=== PATIENT | female | born 1960 | race African-American/Black ===

== ENCOUNTER 2017-03-20 02:13 | Emergency (ER) | payer OTHER ==
[~2017-03-20] VITALS: Ht 165.1 cm; Wt 63.6 kg
[~2017-03-20 02:13] MED LIST: ADULT ASPIRIN E81 MG PO; AMOXICILLIN875 MG OR; ATROVENT NAS0.03 %; BIOTIN300 MCG PO; BLACK COHOS1 PO; CIPROFLOXACN500 MG PO; DOXEPIN HCL10 MG PO; DYMISTA1 SPR; FISH OIL1 CAP PO; FISH OIL1200 M1 PO; FLEXERIL5 M1 PO; FLUZONE SPLT1 M1 IM; KEFLEX500 MG PO; LASIX 20 MG TAB20 MG PO; LEXAPRO20 MG PO; LIPITOR10 M1 PO; LIPITOR40 M1 PO; LORTAB 7.5-3251 TAB PO; MULTIVITAMIN PO; NAPROSYN500 MG OR; NAPROSYN500 MG PO; NO; NO HOME MEDS; PEPCID20 MG PO; SILVADENE1 % TOP; SIMVASTATIN40 MG PO; TENIVAC1 ML IM; XANAX0.5 MG PO
[2017-03-20] MEDS ORDERED: AMLODIPINE5 MG PO (02:21)
[2017-03-20] MEDS ORDERED: METOPROL TAR25 MG PO (02:22)
[2017-03-20] MEDS ORDERED: NAPROSYN500 MG PO (03:43)
[2017-03-20 04:00] VITALS: BP 146/78
== END 2017-03-20 04:00 | disposition home or self-care (01) | DRG 563 ==
LOC: ED 02:13
DX: S96.912A Strain of unspecified muscle and tendon at ankle and foot level, left foot, initial encounter (principal); I10 Essential (primary) hypertension; I34.1 Nonrheumatic mitral (valve) prolapse; X58.XXXA Exposure to other specified factors, initial encounter

== ENCOUNTER 2019-01-15 06:36 | Day surgery (SDC) | payer BC ==
[~2019-01-15 06:36] MED LIST changes: +AMLODIPINE5 MG PO; +LATANOPROST0.005 % OP; +METOPROL TAR25 MG PO; +OMEPRAZOLE20 M2 PO; +SLOW-MAG PO; +SPIRONOLACTONE50 MG PO; +XALATAN0.005 % OU
[2019-01-15 09:28] VITALS: BP 133/70
== END 2019-01-15 09:25 | disposition home or self-care (01) | DRG 951 ==
LOC: ENDO 06:36 → ORM 08:00 → ENDO 09:25
PROVIDERS: ATTEND Surgery
PROC: 0DJD8ZZ Inspection of Lower Intestinal Tract, Via Natural or Artificial Opening Endoscopic (ICD-10-PCS; principal; 2019-01-15)
PROC: 0DJ08ZZ Inspection of Upper Intestinal Tract, Via Natural or Artificial Opening Endoscopic (ICD-10-PCS; 2019-01-15)
DX: Z12.11 Encounter for screening for malignant neoplasm of colon (principal); K64.4 Residual hemorrhoidal skin tags; K21.9 Gastro-esophageal reflux disease without esophagitis; K29.80 Duodenitis without bleeding; I10 Essential (primary) hypertension; T47.1X6A Underdosing of other antacids and anti-gastric-secretion drugs, initial encounter; Z91.128 Patient's intentional underdosing of medication regimen for other reason; Z79.899 Other long term (current) drug therapy

== ENCOUNTER 2021-10-09 20:40 | Emergency (ER) | payer BC ==
[~2021-10-09] VITALS: Ht 165.1 cm; Wt 63.0 kg
[2021-10-09 20:58] VITALS: BP 147/80
[2021-10-09 21:00] VITALS: BP 146/78
[2021-10-09 21:24] LABS: HEMATOCRIT 42.2 % (37.0-47.0); HEMOGLOBIN 14.2 g/dl (12.0-16.0); IMMATURE GRANULOCYTES 0.2 % (0.0-5.0); MEAN CELL VOLUME 90.4 fL CALC (80.0-100.0); MEAN CORPUSCULAR HGB 30.4 pG CALC (26.0-32.0); MEAN CORPUSCULAR HGB CONC 33.6 g/dL CAL (32.0-36.0); NEUT# 13.73 thou/uL (2.00-7.15); RED BLOOD COUNT 4.67 mill/uL (4.20-5.60); RED CELL DISTRI WIDTH 12.6 % (11.5-15.5)
[2021-10-09] MEDS ORDERED: AMOXICILLIN500 MG PO (21:57)
[2021-10-09 21:59] VITALS: BP 147/80
== END 2021-10-09 22:10 | disposition home or self-care (01) | DRG 153 ==
LOC: ED 20:40
PROVIDERS: Family Medicine
DX: J02.0 Streptococcal pharyngitis (principal); I10 Essential (primary) hypertension; K21.9 Gastro-esophageal reflux disease without esophagitis; I34.1 Nonrheumatic mitral (valve) prolapse; Z20.822 Contact with and (suspected) exposure to COVID-19

== ENCOUNTER 2022-03-25 21:16 | Emergency (ER) | payer BC ==
[~2022-03-25] VITALS: Ht 165.1 cm; Wt 63.6 kg
[~2022-03-25 21:16] MED LIST changes: +AMOXICILLIN500 MG PO
[2022-03-25 21:24] VITALS: BP 145/88
[2022-03-25 21:51] LABS: HEMATOCRIT 43.2 % (37.0-47.0); IMMATURE GRANULOCYTES 0.3 % (0.0-5.0); MEAN CELL VOLUME 87.3 fL CALC (80.0-100.0); MEAN CORPUSCULAR HGB 30.3 pG CALC (26.0-32.0); MEAN CORPUSCULAR HGB CONC 34.7 g/dL CAL (32.0-36.0); NEUT# 4.04 thou/uL (2.00-7.15); RED BLOOD COUNT 4.95 mill/uL (4.20-5.60)
[2022-03-25 22:00] VITALS: BP 136/78
[2022-03-25 22:02] LABS: ALBUMIN 4.6 g/dL (3.2-5.0); ALKALINE PHOSPHATASE 69 u/l (38-126); AMYLASE 89 u/l (30-110); ANION GAP 16 (6-22 (CALC)); BILIRUBIN, TOTAL 0.5 mg/dL (0.0-1.4); BUN 16 mg/dL (8-23); BUN/CREATININE RATIO 20 (12-20 (CALC)); CARBON DIOXIDE 25 mmol/l (22-30); CHLORIDE 101 mmol/l (95-108); CREATININE 0.8 mg/dL (0.5-1.0); GFR FOR AFR.AMER. > 60 ML/MIN (>=60 (CALC)); GFR OTHER RACES > 60 ML/MIN (>=60 (CALC)); LIPASE 122 u/l (23-300); POTASSIUM 3.8 mmol/l (3.5-5.1); SGOT/AST 24 u/l (9-36); SODIUM 138 mmol/l (137-146); TOTAL PROTEIN 8.3 g/dL (6.3-8.2)
[2022-03-25 22:15] VITALS: BP 129/77
[2022-03-25 22:28] LABS: MYOGLOBIN 48 ng/mL (0 - 62)
[2022-03-25 22:30] VITALS: BP 133/72
[2022-03-25 22:45] VITALS: BP 120/76
[2022-03-25 23:00] VITALS: BP 123/76
[2022-03-26] MEDS ORDERED: OMEPRAZOLE DR40 MG PO (00:30)
[2022-03-26 00:40] VITALS: BP 123/76
== END 2022-03-26 00:54 | disposition home or self-care (01) | DRG 392 ==
LOC: ED 21:16
PROVIDERS: Family Medicine
DX: R10.13 Epigastric pain (principal); I10 Essential (primary) hypertension; I34.1 Nonrheumatic mitral (valve) prolapse; I48.91 Unspecified atrial fibrillation
CPT/HCPCS: Q9967

== ENCOUNTER 2024-07-07 13:08 | Emergency (ER) | payer OTHER ==
[~2024-07-07] VITALS: Ht 165.1 cm; Wt 67.5 kg
[~2024-07-07 13:08] MED LIST changes: +MEDDOSEPAK PO; +OMEPRAZOLE DR40 MG PO; +SPIRONOLACT50 MG PO; +TIZANIDINE2 MG PO; +XARELTO20 MG PO
[2024-07-07 13:13] VITALS: BP 143/91
[2024-07-07 13:30] VITALS: BP 125/74
[2024-07-07 14:00] VITALS: BP 125/72
[2024-07-07] MEDS ORDERED: TAM75CAP PO (14:11)
[2024-07-07 14:19] VITALS: BP 125/72
== END 2024-07-07 14:20 | disposition home or self-care (01) | DRG 195 ==
LOC: ED 13:08
DX: J10.1 Influenza due to other identified influenza virus with other respiratory manifestations (principal)